=== PATIENT | male | born 2000 | race Caucasian/White ===

== ENCOUNTER 2022-01-04 23:25 | Emergency (ER) | payer OTHER ==
[~2022-01-04] VITALS: Ht 195.6 cm; Wt 100.0 kg
[2022-01-04 23:32] VITALS: TEMP 97.2
[2022-01-05 00:42] VITALS: BP 139/62; PULSE 72
== END 2022-01-05 00:42 | disposition home or self-care (01) ==
LOC: COL.ER 23:25
DX: S37.30XA Unspecified injury of urethra, initial encounter (principal); Z96.0 Presence of urogenital implants; W11.XXXA Fall on and from ladder, initial encounter; Y92.830 Public park as the place of occurrence of the external cause

== ENCOUNTER 2022-01-21 15:31 | Emergency (ER) | payer OTHER ==
[~2022-01-21] VITALS: Ht 195.6 cm; Wt 100.0 kg
[2022-01-21 15:59] VITALS: BP 113/64; TEMP 97.8
[2022-01-21 18:09] VITALS: PULSE 75
== END 2022-01-21 18:09 | disposition home or self-care (01) ==
LOC: COL.ER 15:31
DX: R31.9 Hematuria, unspecified (principal); Z96.0 Presence of urogenital implants; Z87.828 Personal history of other (healed) physical injury and trauma; Z28.311 Partially vaccinated for COVID-19